=== PATIENT | male | born 1970 | race Native Hawaiian/Other Pacific Islander ===

== ENCOUNTER 2018-05-09 06:38 | Inpatient (IN) | payer OTHER ==
[2018-05-09] MEDS ORDERED: Iohexol 240 (50 ml) PO ONE (07:16)
[2018-05-09] MEDS ORDERED: Sodium Chloride 0.9% 1,000 ML IV ONE (07:16)
--- NOTE | 2018-05-09 07:17 | C.PDOC ---
History Of Present Illness 47 year old male with no known history presented with complaint of abdominal pain since yesterday. He was eating spicy cheesestake when started to have abdominal pain and vomiting. He vomited three times yesterday and did not vomit today but he continues to have abdominal pain. Pain is diffuse and He denies any diarrhea, fever or chills. Chief Complaint (Nursing): Abdominal Pain History Per: Patient History/Exam Limitations: no limitations Onset/Duration Of Symptoms: Days, Sudden Onset Current Symptoms Are (Timing): Still Present Context: Food Pain Scale Rating Of: 7 Location Of Pain/Discomfort: Diffuse Quality Of Discomfort: Sharp, "Pain" Associated Symptoms: Vomiting Exacerbating Factors: None Alleviating Factors: None Last Bowel Movement: Yesterday Recent travel outside of the [place]: No Past Medical History Vital Signs: Last Vital Signs Temp 99.4 F 05/09/18 10:25 Pulse 88 05/09/18 10:25 Resp 20 05/09/18 10:25 BP 145/74 05/09/18 10:25 Pulse Ox 96 05/09/18 10:25 - Medical History PMH: No Chronic Diseases Surgical History: No Surg Hx Family History: States: No Known Family Hx - Social History Hx Tobacco Use: Yes (1 pack per day/20 years) Hx Alcohol Use: Yes Hx Substance Use: No - Immunization History Hx Tetanus Toxoid Vaccination: No Hx Influenza Vaccination: No Hx Pneumococcal Vaccination: No Review Of Systems Except As Marked, All Systems Reviewed And Found Negative. Gastrointestinal: Positive for: Vomiting, Abdominal Pain Physical Exam - Physical Exam Appears: Well Skin: Normal Color Head: Atraumatic Eye(s): bilateral: Normal Inspection Ear(s): Bilateral: Normal Nose: Normal Oral Mucosa: Moist Tongue: Normal Appearing Lips: Normal Appearing Throat: Normal Neck: Normal Lymphatic: Deferred Chest: Symmetrical Cardiovascular: Rhythm Regular Respiratory: Normal Breath Sounds Gastrointestinal/Abdominal: Bowel Sounds, Soft, Tenderness Rectal: Deferred Back: Normal Inspection Extremity: Normal ROM Extremity: Bilateral: Atraumatic Neurological/Psych: Oriented x3, Normal Speech ED Course And Treatment - Laboratory Results Result Diagrams: 05/09/18 07:52 05/09/18 07:52 O2 Sat by Pulse Oximetry: 99 Medical Decision Making Medical Decision Makin47 year old M with no known history r/o obstruction r/o appendicitis r/o diverticulitis - labs -pepcid -IVF -ct abd/pelvis Pt was seen at bedside and states that the pain is feeling better. He's pending ct abd/pelvis 10:[address] Rico (patient's requesting him as surgeon) who will admit patient under his service. Case discussed with Dr. Lopez for medical consult. Disposition - Disposition Forms: [employer] (Romanian)
[2018-05-09 07:23] LABS: URINE BILIRUBIN NEGATIVE (NEGATIVE); URINE BLOOD NEGATIVE (NEGATIVE); URINE CLARITY Clear (Clear); URINE COLOR Yellow (YELLOW); URINE GLUCOSE (UA) NORMAL (Normal); URINE LEUKOCYTE ESTERASE NEG Leu/uL (Negative); URINE PROTEIN NEGATIVE (NEGATIVE); URINE UROBILINOGEN NORMAL mg/dL (0.2-1.0)
[2018-05-09] MEDS ORDERED: Sodium Chloride 0.9% 1,000 ML ONE (07:30)
[2018-05-09] MEDS ORDERED: Iohexol 240 (50 ml) ONE (07:30)
[2018-05-09 08:02] LABS: BASO # 0.1 K/uL (0.0-0.2); BASO % 0.2 % (0.0-2.0); EOS % 0.1 % (0.0-4.0); HEMOGLOBIN 15.4 g/dL (12.0-18.0); LYMPH # 2.1 K/uL (1.0-4.3); LYMPH % 7.5 % (20.0-40.0); MEAN CELL VOLUME 88.2 fL (80.0-94.0); MEAN CORPUSCULAR HEMOGLOBIN 30.4 pg (27.0-31.0); MEAN CORPUSCULAR HGB CONC 34.4 g/dL (33.0-37.0); MEAN PLATELET VOLUME 9.3 fL (7.2-11.7); MONO # 2.1 K/uL (0.0-0.8); MONO % 7.6 % (0.0-10.0); NEUT # 23.8 K/uL (1.8-7.0); NEUT % 84.6 % (50.0-75.0); PLATELET COUNT 226 K/uL (130-400); RBC 5.06 Mil/uL (4.40-5.90)
[2018-05-09 08:04] LABS: WHITE BLOOD COUNT 28.2 K/uL (4.8-10.8)
[2018-05-09 08:08] LABS: ALB/GLOB RATIO 1.6 (1.0-2.1); ALBUMIN 4.8 g/dL (3.5-5.0); ALT/SGPT 42 U/L (21-72); AST/SGOT 29 U/L (17-59); BLOOD UREA NITROGEN 9 mg/dL (9-20); CALCIUM 9.8 mg/dl (8.6-10.4); GFR AFRICAN-AMERICAN > 60; GFR NON-AFRICAN AMERICAN > 60; LIPASE 34 U/L (23-300)
[2018-05-09 08:23] LABS: BANDS 1 % (0-2); LYMPHOCYTE 9 % (20-40); MONOCYTE 9 % (0-10); NEUTROPHIL 81 % (50-75); PLATELET ESTIMATE NORMAL (NORMAL); TOTAL CELLS COUNTED 100
[2018-05-09] MEDS ORDERED: Iodixanol 320 MG/ML 100 ML BOTTLE IV ONE (09:36)
--- NOTE | 2018-05-09 10:36 | CT ---
PROCEDURE: CT Abdomen and Pelvis with contrast HISTORY: abd pain COMPARISON: None. TECHNIQUE: Contrast dose: 100 cc of Omnipaque Radiation dose: Total exam DLP = 326 mGy-cm. This CT exam was performed using one or more of the following dose reduction techniques: Automated exposure control, adjustment of the mA and/or kV according to patient size, and/or use of iterative reconstruction technique. FINDINGS: LOWER THORAX: Unremarkable. LIVER: Unremarkable. No gross lesion or ductal dilatation. GALLBLADDER AND BILE DUCTS: Unremarkable. PANCREAS: Unremarkable. No gross lesion or ductal dilatation. SPLEEN: Unremarkable. ADRENALS: Unremarkable. No mass. KIDNEYS AND URETERS: Unremarkable. No hydronephrosis. No solid mass. VASCULATURE: Unremarkable. No aortic aneurysm. BOWEL: Unremarkable. No obstruction. No gross mural thickening. APPENDIX: Diffuse thickening and abnormal enhancement of the appendix with an appendicolith present and periappendiceal fat infiltration consistent with acute appendicitis. PERITONEUM: Unremarkable. No free fluid. No free air. LYMPH NODES: Unremarkable. No enlarged lymph nodes. BLADDER: Unremarkable. REPRODUCTIVE: Unremarkable. BONES: No acute fracture. OTHER FINDINGS: None. IMPRESSION: Diffuse thickening and abnormal enhancement of the appendix with an appendicolith present and periappendiceal fat infiltration consistent with acute appendicitis. Emergency room physician notified.
[2018-05-09] MEDS: Sodium Chloride 0.9% 1,000 ML IV SCH ×3 (11:46→22:45)
[2018-05-09 12:07] LABS: INR 1.2; PROTHROMBIN TIME 13.3 SECONDS (9.7-12.2)
[2018-05-09] MEDS ORDERED: Piperacillin/Tazobact 3.375 gm 100 ML IVPB ONE (12:11)
[2018-05-09] MEDS: Piperacill/Tazo 3.375gm in Dex 3.375 GM/50 ML BAG IVPB SCH ×3 (12:20→23:50)
--- NOTE | 2018-05-09 14:29 | CP.PCM.CON ---
<Thiago Garrison - Last Filed: 05/09/18 14:30> History of Present Illness - History of Present Illness History of Present Illness: sURGERY CONSUYLT NOTE FOR DR BANDA 47M presents with abdominal pain that started yesterday. states he had two episodes of vomiting. He denies any fevers or chills. he has never had this pain before. He had no PMH. PMH: denies PSH: Hand surg Social: smokes tobacco, denies alcohgol Allergies: nkda Past Patient History - Past Social History Smoking Status: Heavy Smoker > 10 Cigarettes Daily - PSYCHIATRIC Hx Substance Use: No - SURGICAL HISTORY Hx Surgeries: No Meds Allergies/Adverse Reactions: Allergies Allergy/AdvReac Type Severity Reaction Status Date / Time No Known Allergies Allergy Unverified 05/09/18 06:56 - Medications Medications: Current Medications Sodium Chloride (Sodium Chloride 0.9%) 1,000 mls @ 100 mls/hr IV .Q10H [facility] Last Admin: 05/09/18 11:46 Dose: 100 mls/hr Piperacillin Sod/Tazobactam Sod (Zosyn 3.375 Gm Iv Premix) 3.375 gm in 50 mls @ 100 mls/hr IVPB Q6H [facility] PRN Reason: Protocol Last Admin: 05/09/18 12:20 Dose: 100 mls/hr Morphine Sulfate (Morphine) 2 mg IVP Q4 PRN PRN Reason: Pain, severe (8-10) Last Admin: 05/09/18 13:47 Dose: 2 mg Pantoprazole Sodium (Protonix Inj) 40 mg IVP DAILY [facility] Physical Exam - Constitutional Appears: Non-toxic, No Acute Distress - Eye Exam Eye Exam: EOMI, PERRL - ENT Exam ENT Exam: Mucous Membranes Moist - Respiratory Exam Respiratory Exam: Clear to Auscultation Bilateral, NORMAL BREATHING PATTERN - Cardiovascular Exam Cardiovascular Exam: REGULAR RHYTHM, +S1, +S2 - GI/Abdominal Exam GI & Abdominal Exam: Soft, Tenderness. absent: Distended, Firm, Guarding, Rebound, Rigid - Extremities Exam Extremities exam: Negative for: pedal edema, tenderness - Neurological Exam Neurological exam: Alert, Oriented x3 - Psychiatric Exam Psychiatric exam: Normal Affect, Normal Mood - Skin Skin Exam: Dry, Intact, Normal Color, Warm Results - Vital Signs Recent Vital Signs: Last Vital Signs Temp 98.8 F 05/09/18 13:00 Pulse 93 H 05/09/18 13:00 Resp 20 05/09/18 13:00 BP 128/75 05/09/18 13:00 Pulse Ox 98 05/09/18 13:00 - Labs Result Diagrams: 05/09/18 07:52 05/09/18 07:52 Labs: Laboratory Results - last 24 hr 05/09/18 05/09/18 05/09/18 07:11 07:52 07:52 WBC 28.2 H RBC 5.06 Hgb 15.4 Hct 44.7 MCV 88.2 MCH 30.4 MCHC 34.4 RDW 13.0 Plt Count 226 MPV 9.3 Neut % (Auto) 84.6 H Lymph % (Auto) 7.5 L [place] % (Auto) 7.6 Eos % (Auto) 0.1 Baso % (Auto) 0.2 Neut # (Auto) 23.8 H Lymph # (Auto) 2.1 [place] # (Auto) 2.1 H Eos # (Auto) 0.0 Baso # (Auto) 0.1 Neutrophils % (Manual) 81 H Band Neutrophils % 1 Lymphocytes % (Manual) 9 L Monocytes % (Manual) 9 Platelet Estimate Normal PT INR APTT Sodium 141 Potassium 4.4 Chloride 100 Carbon Dioxide 27 Anion Gap 18 BUN 9 Creatinine 0.7 L Est GFR ( Amer) > 60 Est GFR (Non-Af Amer) > 60 Random Glucose 119 H Lactic Acid Calcium 9.8 Total Bilirubin 1.0 AST 29 ALT 42 Alkaline Phosphatase 93 Total Protein 7.8 Albumin 4.8 Globulin 3.0 Albumin/Globulin Ratio 1.6 Lipase 34 Urine Color Yellow Urine Clarity Clear Urine pH 6.0 Ur Specific [place] 1.018 Urine Protein Negative Urine Glucose (UA) Normal Urine Ketones Trace Urine Blood Negative Urine Nitrate Negative Urine Bilirubin Negative Urine Urobilinogen Normal Ur Leukocyte Esterase Neg Urine WBC (Auto) 1 Urine RBC (Auto) 1 Blood Type Antibody Screen 05/09/18 05/09/18 05/09/18 07:52 11:55 11:55 WBC RBC Hgb Hct MCV MCH MCHC RDW Plt Count MPV Neut % (Auto) Lymph % (Auto) [place] % (Auto) Eos % (Auto) Baso % (Auto) Neut # (Auto) Lymph # (Auto) [place] # (Auto) Eos # (Auto) Baso # (Auto) Neutrophils % (Manual) Band Neutrophils % Lymphocytes % (Manual) Monocytes % (Manual) Platelet Estimate PT 13.3 H INR 1.2 APTT 35 H Sodium Potassium Chloride Carbon Dioxide Anion Gap BUN Creatinine Est GFR ( Amer) Est GFR (Non-Af Amer) Random Glucose Lactic Acid 2.2 H Calcium Total Bilirubin AST ALT Alkaline Phosphatase Total Protein Albumin Globulin Albumin/Globulin Ratio Lipase Urine Color Urine Clarity Urine pH Ur Specific [place] Urine Protein Urine Glucose (UA) Urine Ketones Urine Blood Urine Nitrate Urine Bilirubin Urine Urobilinogen Ur Leukocyte Esterase Urine WBC (Auto) Urine RBC (Auto) Blood Type O POSITIVE Antibody Screen Negative 05/09/18 13:53 WBC RBC Hgb Hct MCV MCH MCHC RDW Plt Count MPV Neut % (Auto) Lymph % (Auto) [place] % (Auto) Eos % (Auto) Baso % (Auto) Neut # (Auto) Lymph # (Auto) [place] # (Auto) Eos # (Auto) Baso # (Auto) Neutrophils % (Manual) Band Neutrophils % Lymphocytes % (Manual) Monocytes % (Manual) Platelet Estimate PT INR APTT Sodium Potassium Chloride Carbon Dioxide Anion Gap BUN Creatinine Est GFR ( Amer) Est GFR (Non-Af Amer) Random Glucose Lactic Acid 1.1 Calcium Total Bilirubin AST ALT Alkaline Phosphatase Total Protein Albumin Globulin Albumin/Globulin Ratio Lipase Urine Color Urine Clarity Urine pH Ur Specific [place] Urine Protein Urine Glucose (UA) Urine Ketones Urine Blood Urine Nitrate Urine Bilirubin Urine Urobilinogen Ur Leukocyte Esterase Urine WBC (Auto) Urine RBC (Auto) Blood Type Antibody Screen Assessment & Plan - Assessment and Plan (Free Text) Assessment: 47M with appendicitis Plan: - NPO, IVF Pain control antibiotics Plan for OR Further recs discuss with Dr. Veronika Garrison PGY2 <Dylno Banda - Last Filed: 05/13/18 00:25> Results - Vital Signs Recent Vital Signs: Last Vital Signs Temp 97.4 F L 05/11/18 15:41 Pulse 70 05/11/18 15:41 Resp 20 05/11/18 15:41 BP 164/92 H 05/11/18 15:41 Pulse Ox 98 05/11/18 15:41 - Labs Result Diagrams: 05/11/18 08:15 05/11/18 08:15 Attending/Attestation - Attestation I have personally seen and examined this patient.: Yes I have fully participated in the care of the patient.: Yes I have reviewed all pertinent clinical information: Yes Notes (Text): Pt was seen and examined at bedside Agree with above note and assessment Pt with RLQ abdominal pain and tenderness Labs and radiology reviewed Ass: Acute Appendicitis with Severe Leucocytosis Plan: OR for Lap Appendectomy possible Open Consent NPO, IVF IV antibiotics Plan d.w pt in detail Risk and benefit explained in detail.
--- NOTE | 2018-05-09 18:47 | CP.PCM.HP ---
<Thiago Garrison - Last Filed: 05/09/18 18:47> History of Present Illness - History of Present Illness History of Present Illness: SURGERY NOTE FOR VERONIKA 47M presents with abdominal pain that started yesterday. He states the pain stated in the lower abdominal and is now in the right lower quadrant. States he had two episodes of vomiting. He denies any fevers or chills. he has never had this pain before. States he has not been able to tolerate PO all day. PMH: denies PSH: Hand surg Social: smokes tobacco, denies alcohol Allergies: NKDA Present on Admission - Present on Admission Any Indicators Present on Admission: No Past Patient History - Past Medical History & Family History Past Medical History?: No - Past Social History Smoking Status: Light Smoker < 10 Cigarettes Daily - MUSCULOSKELETAL/RHEUMATOLOGICAL Hx Falls: No - PSYCHIATRIC Hx Substance Use: No - SURGICAL HISTORY Hx Surgeries: No Meds Allergies/Adverse Reactions: Allergies Allergy/AdvReac Type Severity Reaction Status Date / Time No Known Allergies Allergy Unverified 05/09/18 06:56 Physical Exam - Constitutional Appears: Non-toxic, No Acute Distress - Eye Exam Eye Exam: EOMI, PERRL - Respiratory Exam Respiratory Exam: Clear to Auscultation Bilateral, NORMAL BREATHING PATTERN - Cardiovascular Exam Cardiovascular Exam: REGULAR RHYTHM, +S1, +S2 - GI/Abdominal Exam GI & Abdominal Exam: Soft, Tenderness (lower abdomen). absent: Distended, Firm , Guarding, Rebound, Rigid - Extremities Exam Extremities exam: Negative for: pedal edema, tenderness - Neurological Exam Neurological exam: Alert, Oriented x3 - Psychiatric Exam Psychiatric exam: Normal Affect, Normal Mood - Skin Skin Exam: Dry, Intact, Normal Color, Warm Results - Vital Signs Recent Vital Signs: Last Vital Signs Temp 99.8 F H 05/09/18 15:45 Pulse 92 H 05/09/18 15:45 Resp 20 05/09/18 15:45 BP 116/71 05/09/18 15:45 Pulse Ox 96 05/09/18 15:45 - Labs Result Diagrams: 05/09/18 07:52 05/09/18 07:52 Labs: Laboratory Results - last 24 hr 05/09/18 05/09/18 05/09/18 07:11 07:52 07:52 WBC 28.2 H RBC 5.06 Hgb 15.4 Hct 44.7 MCV 88.2 MCH 30.4 MCHC 34.4 RDW 13.0 Plt Count 226 MPV 9.3 Neut % (Auto) 84.6 H Lymph % (Auto) 7.5 L [place] % (Auto) 7.6 Eos % (Auto) 0.1 Baso % (Auto) 0.2 Neut # (Auto) 23.8 H Lymph # (Auto) 2.1 [place] # (Auto) 2.1 H Eos # (Auto) 0.0 Baso # (Auto) 0.1 Neutrophils % (Manual) 81 H Band Neutrophils % 1 Lymphocytes % (Manual) 9 L Monocytes % (Manual) 9 Platelet Estimate Normal PT INR APTT Sodium 141 Potassium 4.4 Chloride 100 Carbon Dioxide 27 Anion Gap 18 BUN 9 Creatinine 0.7 L Est GFR ( Amer) > 60 Est GFR (Non-Af Amer) > 60 Random Glucose 119 H Lactic Acid Calcium 9.8 Total Bilirubin 1.0 AST 29 ALT 42 Alkaline Phosphatase 93 Total Protein 7.8 Albumin 4.8 Globulin 3.0 Albumin/Globulin Ratio 1.6 Lipase 34 Urine Color Yellow Urine Clarity Clear Urine pH 6.0 Ur Specific [place] 1.018 Urine Protein Negative Urine Glucose (UA) Normal Urine Ketones Trace Urine Blood Negative Urine Nitrate Negative Urine Bilirubin Negative Urine Urobilinogen Normal Ur Leukocyte Esterase Neg Urine WBC (Auto) 1 Urine RBC (Auto) 1 Blood Type Antibody Screen 05/09/18 05/09/18 05/09/18 07:52 11:55 11:55 WBC RBC Hgb Hct MCV MCH MCHC RDW Plt Count MPV Neut % (Auto) Lymph % (Auto) [place] % (Auto) Eos % (Auto) Baso % (Auto) Neut # (Auto) Lymph # (Auto) [place] # (Auto) Eos # (Auto) Baso # (Auto) Neutrophils % (Manual) Band Neutrophils % Lymphocytes % (Manual) Monocytes % (Manual) Platelet Estimate PT 13.3 H INR 1.2 APTT 35 H Sodium Potassium Chloride Carbon Dioxide Anion Gap BUN Creatinine Est GFR ( Amer) Est GFR (Non-Af Amer) Random Glucose Lactic Acid 2.2 H Calcium Total Bilirubin AST ALT Alkaline Phosphatase Total Protein Albumin Globulin Albumin/Globulin Ratio Lipase Urine Color Urine Clarity Urine pH Ur Specific [place] Urine Protein Urine Glucose (UA) Urine Ketones Urine Blood Urine Nitrate Urine Bilirubin Urine Urobilinogen Ur Leukocyte Esterase Urine WBC (Auto) Urine RBC (Auto) Blood Type O POSITIVE Antibody Screen Negative 05/09/18 13:53 WBC RBC Hgb Hct MCV MCH MCHC RDW Plt Count MPV Neut % (Auto) Lymph % (Auto) [place] % (Auto) Eos % (Auto) Baso % (Auto) Neut # (Auto) Lymph # (Auto) [place] # (Auto) Eos # (Auto) Baso # (Auto) Neutrophils % (Manual) Band Neutrophils % Lymphocytes % (Manual) Monocytes % (Manual) Platelet Estimate PT INR APTT Sodium Potassium Chloride Carbon Dioxide Anion Gap BUN Creatinine Est GFR ( Amer) Est GFR (Non-Af Amer) Random Glucose Lactic Acid 1.1 Calcium Total Bilirubin AST ALT Alkaline Phosphatase Total Protein Albumin Globulin Albumin/Globulin Ratio Lipase Urine Color Urine Clarity Urine pH Ur Specific [place] Urine Protein Urine Glucose (UA) Urine Ketones Urine Blood Urine Nitrate Urine Bilirubin Urine Urobilinogen Ur Leukocyte Esterase Urine WBC (Auto) Urine RBC (Auto) Blood Type Antibody Screen Assessment & Plan - Assessment and Plan (Free Text) Assessment: 47M with acute appendicitis Plan: NPO, IVF Pain control Antibiotics Plan for OR Further recs discuss with Dr. Veronika Garrison, PGY2 <Dylon Banda - Last Filed: 05/13/18 00:26> Results - Vital Signs Recent Vital Signs: Last Vital Signs Temp 97.4 F L 05/11/18 15:41 Pulse 70 05/11/18 15:41 Resp 20 05/11/18 15:41 BP 164/92 H 05/11/18 15:41 Pulse Ox 98 05/11/18 15:41 - Labs Result Diagrams: 05/11/18 08:15 05/11/18 08:15 Attending/Attestation - Attestation I have personally seen and examined this patient.: Yes I have fully participated in the care of the patient.: Yes I have reviewed all pertinent clinical information: Yes Notes (Text): Pt was seen and examined at bedside Agree with above note and assessment Pt with RLQ abdominal pain and tenderness Labs and radiology reviewed Ass: Acute Appendicitis with Severe Leucocytosis Plan: OR for Lap Appendectomy possible Open Consent NPO, IVF IV antibiotics Plan d.w pt in detail Risk and benefit explained in detail.
[2018-05-09] MEDS ORDERED: Propofol 10 mg/ml Inj (20 ML) ONE ×3 (20:01→20:27)
[2018-05-09] MEDS ORDERED: Succinylcholine Chloride 20 mg/ml Syr (5 ml) IV ONE (20:01)
[2018-05-09] MEDS ORDERED: Bupivacaine HCl 0.25% PF (30 ml) Inj ONE (20:13)
[2018-05-09] MEDS ORDERED: Lidocaine/Epinephrine 1% 1:100000 10 ML IJ ONE (20:14)
[2018-05-09] MEDS ORDERED: Rocuronium 10 mg/ml (5 ml) ONE (20:43)
[2018-05-09] MEDS ORDERED: Neostigmine Methylsulfate 3mg/3ml Syringe IV ONE (21:00)
[2018-05-09] MEDS ORDERED: Esmolol 100 mg/10ml Inj IV ONE (21:01)
--- NOTE | 2018-05-09 21:38 | CP.PCM.CON ---
History of Present Illness - History of Present Illness History of Present Illness: Chief complaint: Abdominal pain History of present illness: 47-year-old male with no past medical history came to the office with complaining of abdominal pain, sudden onset. Patient started noticing the pain yesterday in the afternoon, gradually got worse. Last night he was not able to sleep, the pain was localized over the lower abdominal region, such with the nausea. He was also having few episodes of vomiting. He denied any fever chills. This morning symptoms got worse. Family brought him to the emergency room. Patient in the past he has no past medical history, currently not taking any medication except multivitamins. Past medical history none Allergies no known drug allergies Past medical history patient currently smoking for many years, 1 pack per day. He denies any alcohol. But on and off he drinks his beer. Surgical history hand to hand surgery Family history: Father with liver cancer, and liver disease secondary to alcohol Brother also had a history of lung cancer Mother diabetes Review of system: Noted from the chart. Not in any distress now. Abdominal pain noted, improving now Denies any nausea now, had episodes of vomiting in the past. No GI or symptoms On examination: Vital signs are stable. Chest bilateral good air entry regular heart sounds nontender abdominal pedal edema DATA ANALYST alert awake oriented 3 no functional neurological deficit CAT scan of the abdomen showing evidence of thickening of the appendix, and the periappendiceal fat infiltration suggestive of acute appendicitis Labs WBC 28.2 Neutrophilia Lactate slightly elevated Chest x-ray was not done. EKG showing evidence of normal sinus rhythm 88 bpm Assessment and recommendation: 47-year-old male with history of smoking admitted to the hospital with acute abdomen. Acute appendicitis. Patient is scheduled to have the surgical intervention. Patient is medically stable for surgery. I advised him to quit smoking. CAT scan of the abdomen showing in the lower lung olguin a possibly and emphysematous changes. We will get x-ray of the chest tomorrow. We will follow the patient. Bronchodilators may be necessary, pain medication and will follow the patient Past Patient History - Past Medical History & Family History Past Medical History?: No - Past Social History Smoking Status: Light Smoker < 10 Cigarettes Daily - MUSCULOSKELETAL/RHEUMATOLOGICAL Hx Falls: No - PSYCHIATRIC Hx Substance Use: No - SURGICAL HISTORY Hx Surgeries: No Meds Allergies/Adverse Reactions: Allergies Allergy/AdvReac Type Severity Reaction Status Date / Time No Known Allergies Allergy Unverified 05/09/18 06:56 - Medications Medications: Current Medications Sodium Chloride (Sodium Chloride 0.9%) 1,000 mls @ 100 mls/hr IV .Q10H [facility] Last Admin: 05/09/18 19:08 Dose: 100 mls/hr Piperacillin Sod/Tazobactam Sod (Zosyn 3.375 Gm Iv Premix) 3.375 gm in 50 mls @ 100 mls/hr IVPB Q6H [facility] PRN Reason: Protocol Last Admin: 05/09/18 19:05 Dose: 100 mls/hr Morphine Sulfate (Morphine) 2 mg IVP Q4 PRN PRN Reason: Pain, severe (8-10) Last Admin: 05/09/18 13:47 Dose: 2 mg Pantoprazole Sodium (Protonix Inj) 40 mg IVP DAILY [facility] Results - Vital Signs Recent Vital Signs: Last Vital Signs Temp 99.8 F H 05/09/18 15:45 Pulse 92 H 05/09/18 15:45 Resp 20 05/09/18 15:45 BP 116/71 05/09/18 15:45 Pulse Ox 96 05/09/18 15:45 - Labs Result Diagrams: 05/09/18 07:52 05/09/18 07:52 Labs: Laboratory Results - last 24 hr 05/09/18 05/09/18 05/09/18 07:11 07:52 07:52 WBC 28.2 H RBC 5.06 Hgb 15.4 Hct 44.7 MCV 88.2 MCH 30.4 MCHC 34.4 RDW 13.0 Plt Count 226 MPV 9.3 Neut % (Auto) 84.6 H Lymph % (Auto) 7.5 L [place] % (Auto) 7.6 Eos % (Auto) 0.1 Baso % (Auto) 0.2 Neut # (Auto) 23.8 H Lymph # (Auto) 2.1 [place] # (Auto) 2.1 H Eos # (Auto) 0.0 Baso # (Auto) 0.1 Neutrophils % (Manual) 81 H Band Neutrophils % 1 Lymphocytes % (Manual) 9 L Monocytes % (Manual) 9 Platelet Estimate Normal PT INR APTT Sodium 141 Potassium 4.4 Chloride 100 Carbon Dioxide 27 Anion Gap 18 BUN 9 Creatinine 0.7 L Est GFR ( Amer) > 60 Est GFR (Non-Af Amer) > 60 Random Glucose 119 H Lactic Acid Calcium 9.8 Total Bilirubin 1.0 AST 29 ALT 42 Alkaline Phosphatase 93 Total Protein 7.8 Albumin 4.8 Globulin 3.0 Albumin/Globulin Ratio 1.6 Lipase 34 Urine Color Yellow Urine Clarity Clear Urine pH 6.0 Ur Specific [place] 1.018 Urine Protein Negative Urine Glucose (UA) Normal Urine Ketones Trace Urine Blood Negative Urine Nitrate Negative Urine Bilirubin Negative Urine Urobilinogen Normal Ur Leukocyte Esterase Neg Urine WBC (Auto) 1 Urine RBC (Auto) 1 Blood Type Antibody Screen 05/09/18 05/09/18 05/09/18 07:52 11:55 11:55 WBC RBC Hgb Hct MCV MCH MCHC RDW Plt Count MPV Neut % (Auto) Lymph % (Auto) [place] % (Auto) Eos % (Auto) Baso % (Auto) Neut # (Auto) Lymph # (Auto) [place] # (Auto) Eos # (Auto) Baso # (Auto) Neutrophils % (Manual) Band Neutrophils % Lymphocytes % (Manual) Monocytes % (Manual) Platelet Estimate PT 13.3 H INR 1.2 APTT 35 H Sodium Potassium Chloride Carbon Dioxide Anion Gap BUN Creatinine Est GFR ( Amer) Est GFR (Non-Af Amer) Random Glucose Lactic Acid 2.2 H Calcium Total Bilirubin AST ALT Alkaline Phosphatase Total Protein Albumin Globulin Albumin/Globulin Ratio Lipase Urine Color Urine Clarity Urine pH Ur Specific [place] Urine Protein Urine Glucose (UA) Urine Ketones Urine Blood Urine Nitrate Urine Bilirubin Urine Urobilinogen Ur Leukocyte Esterase Urine WBC (Auto) Urine RBC (Auto) Blood Type O POSITIVE Antibody Screen Negative 05/09/18 13:53 WBC RBC Hgb Hct MCV MCH MCHC RDW Plt Count MPV Neut % (Auto) Lymph % (Auto) [place] % (Auto) Eos % (Auto) Baso % (Auto) Neut # (Auto) Lymph # (Auto) [place] # (Auto) Eos # (Auto) Baso # (Auto) Neutrophils % (Manual) Band Neutrophils % Lymphocytes % (Manual) Monocytes % (Manual) Platelet Estimate PT INR APTT Sodium Potassium Chloride Carbon Dioxide Anion Gap BUN Creatinine Est GFR ( Amer) Est GFR (Non-Af Amer) Random Glucose Lactic Acid 1.1 Calcium Total Bilirubin AST ALT Alkaline Phosphatase Total Protein Albumin Globulin Albumin/Globulin Ratio Lipase Urine Color Urine Clarity Urine pH Ur Specific [place] Urine Protein Urine Glucose (UA) Urine Ketones Urine Blood Urine Nitrate Urine Bilirubin Urine Urobilinogen Ur Leukocyte Esterase Urine WBC (Auto) Urine RBC (Auto) Blood Type Antibody Screen
[2018-05-09] MEDS ORDERED: HYDROmorphone 0.5 mg/0.5 ml ISec IVP PRN (22:14)
--- NOTE | 2018-05-09 22:20 | PCM.SURG1 ---
Surgeon's Initial Post Op Note - Surgeon's Notes Surgeon: MD Veronika Medical Field Representative: SPENSER GarrisonY2 Pre-Operative Diagnosis: Acute appendicitis Operative Findings: inflammed appendix Post-Operative Diagnosis: Acute appendicitis Operation Performed: laparoscopis appendectomy, lysis of adhesions Specimen/Specimens Removed: appendix Estimated Blood Loss: EBL {In ML}: 10 Date of Surgery/Procedure: 05/09/18 Time of Surgery/Procedure: 20:15
[2018-05-10] MEDS: Piperacill/Tazo 3.375gm in Dex 3.375 GM/50 ML BAG IVPB SCH ×4 (06:11→22:15)
[2018-05-10] MEDS: HYDROmorphone 0.5 mg/0.5 ml ISec IVP PRN ×2 (06:24)
[2018-05-10] MEDS: Sodium Chloride 0.9% 1,000 ML IV SCH (07:47)
[2018-05-10] MEDS ORDERED: HYDROmorphone 1 mg/ml ISec IVP PRN (09:14)
[2018-05-10 11:15] LABS: BASO % 0.1 % (0.0-2.0); LYMPH # 0.8 K/uL (1.0-4.3); LYMPH % 4.3 % (20.0-40.0); MEAN CELL VOLUME 89.6 fL (80.0-94.0); MEAN CORPUSCULAR HEMOGLOBIN 30.9 pg (27.0-31.0); MEAN CORPUSCULAR HGB CONC 34.5 g/dL (33.0-37.0); MEAN PLATELET VOLUME 8.6 fL (7.2-11.7); MONO # 0.9 K/uL (0.0-0.8); MONO % 4.8 % (0.0-10.0); NEUT # 17.8 K/uL (1.8-7.0); NEUT % 90.8 % (50.0-75.0); PLATELET COUNT 198 K/uL (130-400); RBC 4.28 Mil/uL (4.40-5.90); RED CELL DISTRIBUTION WIDTH 13.5 % (11.5-14.5); WHITE BLOOD COUNT 19.6 K/uL (4.8-10.8)
[2018-05-10 11:26] LABS: HEMOGLOBIN 13.2 g/dL (12.0-18.0)
[2018-05-10 11:33] LABS: ALB/GLOB RATIO 1.6 (1.0-2.1); ALBUMIN 4.2 g/dL (3.5-5.0); ALT/SGPT 61 U/L (21-72); AST/SGOT 50 U/L (17-59); BLOOD UREA NITROGEN 18 mg/dL (9-20); CALCIUM 8.8 mg/dl (8.6-10.4); GFR AFRICAN-AMERICAN > 60; GFR NON-AFRICAN AMERICAN > 60
[2018-05-10 11:47] LABS: LYMPHOCYTE 7 % (20-40); MONOCYTE 2 % (0-10); NEUTROPHIL 91 % (50-75); PLATELET ESTIMATE NORMAL (NORMAL); TOTAL CELLS COUNTED 100
[2018-05-10 16:53] VITALS: RESP 20
--- NOTE | 2018-05-10 17:47 | CARD ---
APPROVED REPORT EKG Measurement Heart [id number] <Conclusion> Normal sinus rhythm Normal ECG
--- NOTE | 2018-05-10 20:54 | CP.PCM.PN ---
<JavierRosario - Last Filed: 05/10/18 20:51> Subjective - Date & Time of Evaluation Date of Evaluation: 05/10/18 Time of Evaluation: 20:51 - Subjective Subjective: Surgery Pt seen and examined. Pt underwent surgery yesterday and tolerated it well. Tolerating diet. Had urinary retention overnight. Urology consulted . Placed on Flomax. Voided. Pain controlled. Ambulating. Objective - Vital Signs/Intake and Output Vital Signs (last 24 hours): Temp Pulse Resp BP Pulse Ox 98.1 F 84 20 108/65 96 05/10/18 15:55 05/10/18 15:55 05/10/18 15:55 05/10/18 15:55 05/10/18 15:55 Intake and Output: 05/10/18 05/11/18 18:59 06:59 Intake Total 600 Output Total 1330 Balance -730 - Medications Medications: Current Medications Hydromorphone HCl (Dilaudid) 1 mg IVP Q6 PRN PRN Reason: Pain, severe (8-10) Piperacillin Sod/Tazobactam Sod (Zosyn 3.375 Gm Iv Premix) 3.375 gm in 50 mls @ 100 mls/hr IVPB Q6H [facility] PRN Reason: Protocol Last Admin: 05/10/18 17:15 Dose: 100 mls/hr Ketorolac Tromethamine (Toradol) 30 mg IVP Q6 PRN PRN Reason: Pain, moderate (4-7) Last Admin: 05/10/18 17:16 Dose: 30 mg Pantoprazole Sodium (Protonix Inj) 40 mg IVP DAILY [facility] Last Admin: 05/10/18 09:48 Dose: 40 mg Tamsulosin HCl (Flomax) 0.4 mg PO BID [facility] Last Admin: 05/10/18 17:15 Dose: 0.4 mg - Labs Labs: 05/10/18 11:05 05/10/18 11:05 PT 13.3 SECONDS (9.7-12.2) H 05/09/18 11:55 INR 1.2 05/09/18 11:55 APTT 35 SECONDS (21-34) H 05/09/18 11:55 - Constitutional Appears: No Acute Distress - Head Exam Head Exam: ATRAUMATIC, NORMAL INSPECTION, NORMOCEPHALIC - Eye Exam Eye Exam: EOMI, Normal appearance, PERRL Pupil Exam: NORMAL ACCOMODATION, PERRL - ENT Exam ENT Exam: Mucous Membranes Moist, Normal Exam - Neck Exam Neck Exam: Full ROM, Normal Inspection. absent: Lymphadenopathy - Respiratory Exam Respiratory Exam: Clear to Ausculation Bilateral, NORMAL BREATHING PATTERN - Cardiovascular Exam Cardiovascular Exam: REGULAR RHYTHM, +S1, +S2. absent: Murmur - GI/Abdominal Exam GI & Abdominal Exam: Soft, Tenderness, Normal Bowel Sounds. absent: Distended, Firm, Guarding, Rigid, Hernia, Mass Additional comments: Incision C/D/I , Drain in place 50cc SS. - Exam Exam: NORMAL INSPECTION - Extremities Exam Extremities Exam: Full ROM, Normal Capillary Refill, Normal Inspection. absent : Joint Swelling, Pedal Edema - Back Exam Back Exam: NORMAL INSPECTION - Neurological Exam Neurological Exam: Alert, Awake, CN II-XII Intact, Normal Gait, Oriented x3 - Psychiatric Exam Psychiatric exam: Normal Affect, Normal Mood - Skin Skin Exam: Dry, Intact, Normal Color, Warm Assessment and Plan - Assessment and Plan (Free Text) Assessment: POD 1 s/p laparoscopic appendectomy YANELIS -f/u CBC -MOnitor VS -Regular diet -AMbulate -Flomax BID -Urology consult appreciated -Zosyn -DVT/GI ppx Will DW Dr. Banda <Dylon Banda B - Last Filed: 05/13/18 00:34> Objective - Vital Signs/Intake and Output Vital Signs (last 24 hours): Temp Pulse Resp BP Pulse Ox 97.4 F L 70 20 164/92 H 98 05/11/18 15:41 05/11/18 15:41 05/11/18 15:41 05/11/18 15:41 05/11/18 15:41 - Labs Labs: 05/11/18 08:15 05/11/18 08:15 PT 13.3 SECONDS (9.7-12.2) H 05/09/18 11:55 INR 1.2 05/09/18 11:55 APTT 35 SECONDS (21-34) H 05/09/18 11:55 Attending/Attestation - Attestation I have personally seen and examined this patient.: Yes I have fully participated in the care of the patient.: Yes I have reviewed all pertinent clinical information, including history, physical exam and plan: Yes Notes (Text): Pt was seen and examined at bedside Agree with above note and assessment Pt is improving clinically Had Urinary retention today Now pt is on Flomax IV antibiotics Repeat CBC in am Plan d.w pt in detail Risk and benefit explained in detail.
--- NOTE | 2018-05-10 23:09 | CP.PCM.CON ---
Past Patient History - Past Medical History & Family History Past Medical History?: No - Past Social History Smoking Status: Light Smoker < 10 Cigarettes Daily - MUSCULOSKELETAL/RHEUMATOLOGICAL Hx Falls: No - PSYCHIATRIC Hx Substance Use: No - SURGICAL HISTORY Hx Surgeries: No Meds Allergies/Adverse Reactions: Allergies Allergy/AdvReac Type Severity Reaction Status Date / Time No Known Allergies Allergy Unverified 05/09/18 06:56 - Medications Medications: Current Medications Hydromorphone HCl (Dilaudid) 1 mg IVP Q6 PRN PRN Reason: Pain, severe (8-10) Piperacillin Sod/Tazobactam Sod (Zosyn 3.375 Gm Iv Premix) 3.375 gm in 50 mls @ 100 mls/hr IVPB Q6H [facility] PRN Reason: Protocol Last Admin: 05/10/18 22:15 Dose: 100 mls/hr Ketorolac Tromethamine (Toradol) 30 mg IVP Q6 PRN PRN Reason: Pain, moderate (4-7) Last Admin: 05/10/18 17:16 Dose: 30 mg Pantoprazole Sodium (Protonix Inj) 40 mg IVP DAILY [facility] Last Admin: 05/10/18 09:48 Dose: 40 mg Tamsulosin HCl (Flomax) 0.4 mg PO BID [facility] Last Admin: 05/10/18 17:15 Dose: 0.4 mg Results - Vital Signs Recent Vital Signs: Last Vital Signs Temp 98.1 F 05/10/18 15:55 Pulse 84 05/10/18 15:55 Resp 20 05/10/18 15:55 BP 108/65 05/10/18 15:55 Pulse Ox 96 05/10/18 15:55 - Labs Result Diagrams: 05/10/18 11:05 05/10/18 11:05 Labs: Laboratory Results - last 24 hr 05/10/18 05/10/18 11:05 11:05 WBC 19.6 H RBC 4.28 L Hgb 13.2 D Hct 38.4 MCV 89.6 MCH 30.9 MCHC 34.5 RDW 13.5 Plt Count 198 MPV 8.6 Neut % (Auto) 90.8 H Lymph % (Auto) 4.3 L [place] % (Auto) 4.8 Eos % (Auto) 0.0 Baso % (Auto) 0.1 Neut # (Auto) 17.8 H Lymph # (Auto) 0.8 L [place] # (Auto) 0.9 H Eos # (Auto) 0.0 Baso # (Auto) 0.0 Neutrophils % (Manual) 91 H Lymphocytes % (Manual) 7 L Monocytes % (Manual) 2 Platelet Estimate Normal Sodium 144 Potassium 4.0 Chloride 104 Carbon Dioxide 24 Anion Gap 21 H BUN 18 Creatinine 1.1 Est GFR ( Amer) > 60 Est GFR (Non-Af Amer) > 60 Random Glucose 133 H Calcium 8.8 Total Bilirubin 0.9 AST 50 ALT 61 Alkaline Phosphatase 80 Total Protein 6.8 Albumin 4.2 Globulin 2.6 Albumin/Globulin Ratio 1.6 Assessment & Plan - Assessment and Plan (Free Text) Assessment: IMP: Urinary retention, now improved Inability to have catheter passed s/p appendectomy full note tbd YS - Date & Time Date: 05/10/18 Time: 12:45
[2018-05-11] MEDS: Piperacill/Tazo 3.375gm in Dex 3.375 GM/50 ML BAG IVPB SCH ×3 (05:49→17:21)
[2018-05-11 08:46] LABS: BASO % 0.3 % (0.0-2.0); EOS % 0.1 % (0.0-4.0); HEMOGLOBIN 12.8 g/dL (12.0-18.0); LYMPH # 2.4 K/uL (1.0-4.3); LYMPH % 16.9 % (20.0-40.0); MEAN CELL VOLUME 89.7 fL (80.0-94.0); MEAN CORPUSCULAR HEMOGLOBIN 30.8 pg (27.0-31.0); MEAN CORPUSCULAR HGB CONC 34.4 g/dL (33.0-37.0); MEAN PLATELET VOLUME 8.8 fL (7.2-11.7); MONO # 0.6 K/uL (0.0-0.8); MONO % 4.3 % (0.0-10.0); NEUT % 78.4 % (50.0-75.0); RBC 4.14 Mil/uL (4.40-5.90); RED CELL DISTRIBUTION WIDTH 13.5 % (11.5-14.5)
[2018-05-11 09:10] LABS: ALB/GLOB RATIO 1.3 (1.0-2.1); ALBUMIN 3.7 g/dL (3.5-5.0); ALT/SGPT 52 U/L (21-72); AST/SGOT 36 U/L (17-59); BLOOD UREA NITROGEN 17 mg/dL (9-20); CALCIUM 8.8 mg/dl (8.6-10.4); GFR AFRICAN-AMERICAN > 60; GFR NON-AFRICAN AMERICAN > 60
[2018-05-11 15:41] VITALS: BP 164/92; PULSE 70; TEMP 97.4; O2SAT 98
--- NOTE | 2018-05-11 18:13 | CP.PCM.PN ---
Subjective - Date & Time of Evaluation Date of Evaluation: 05/10/18 Time of Evaluation: 18:12 - Subjective Subjective: Patient this morning had an episode of urinary retention. He underwent appendectomy last night. Tolerated the procedure well. Complaining of some lower back pain. But he is feeling good now. Able to ambulate, and he was also making urine On examination: Vital signs stable. Chest good air entry regular heart sounds nontender abdomen. Drainage noted Assessment and recommendation: 47-year-old male admitted with acute appendicitis. Urinary retention. With the Flomax patient is able to pass urine. We will continue the current treatment. IV fluid antibiotic. And also patient admitted with acute sepsis, secondary to acute appendicitis Objective - Vital Signs/Intake and Output Vital Signs (last 24 hours): Temp Pulse Resp BP Pulse Ox 97.4 F L 70 20 164/92 H 98 05/11/18 15:41 05/11/18 15:41 05/11/18 15:41 05/11/18 15:41 05/11/18 15:41 Intake and Output: 05/11/18 05/11/18 06:59 18:59 Intake Total 1100 530 Output Total 420 820 Balance 680 -290 - Medications Medications: Current Medications Hydromorphone HCl (Dilaudid) 1 mg IVP Q6 PRN PRN Reason: Pain, severe (8-10) Piperacillin Sod/Tazobactam Sod (Zosyn 3.375 Gm Iv Premix) 3.375 gm in 50 mls @ 100 mls/hr IVPB Q6H [facility] PRN Reason: Protocol Last Admin: 05/11/18 17:21 Dose: 100 mls/hr Ketorolac Tromethamine (Toradol) 30 mg IVP Q6 PRN PRN Reason: Pain, moderate (4-7) Last Admin: 05/10/18 17:16 Dose: 30 mg Pantoprazole Sodium (Protonix Inj) 40 mg IVP DAILY [facility] Last Admin: 05/11/18 10:37 Dose: 40 mg Tamsulosin HCl (Flomax) 0.4 mg PO BID [facility] Last Admin: 05/11/18 17:21 Dose: 0.4 mg - Labs Labs: 05/11/18 08:15 05/11/18 08:15 PT 13.3 SECONDS (9.7-12.2) H 05/09/18 11:55 INR 1.2 05/09/18 11:55 APTT 35 SECONDS (21-34) H 05/09/18 11:55
--- NOTE | 2018-05-11 18:14 | CP.PCM.PN ---
Subjective - Date & Time of Evaluation Date of Evaluation: 05/11/18 Time of Evaluation: 18:14 - Subjective Subjective: Patient this morning had an episode of urinary retention. He underwent appendectomy last night. Tolerated the procedure well. Currently feeling better. Tolerating the feeding On examination: Vital signs stable. Chest good air entry regular heart sounds nontender abdomen. Drainage noted Assessment and recommendation: 47-year-old male admitted with acute appendicitis. Urinary retention. With the Flomax patient is able to pass urine. We will continue the current treatment. IV fluid antibiotic. And also patient admitted with acute sepsis, secondary to acute appendicitis Objective - Vital Signs/Intake and Output Vital Signs (last 24 hours): Temp Pulse Resp BP Pulse Ox 97.4 F L 70 20 164/92 H 98 05/11/18 15:41 05/11/18 15:41 05/11/18 15:41 05/11/18 15:41 05/11/18 15:41 Intake and Output: 05/11/18 05/11/18 06:59 18:59 Intake Total 1100 530 Output Total 420 820 Balance 680 -290 - Medications Medications: Current Medications Hydromorphone HCl (Dilaudid) 1 mg IVP Q6 PRN PRN Reason: Pain, severe (8-10) Piperacillin Sod/Tazobactam Sod (Zosyn 3.375 Gm Iv Premix) 3.375 gm in 50 mls @ 100 mls/hr IVPB Q6H [facility] PRN Reason: Protocol Last Admin: 05/11/18 17:21 Dose: 100 mls/hr Ketorolac Tromethamine (Toradol) 30 mg IVP Q6 PRN PRN Reason: Pain, moderate (4-7) Last Admin: 05/10/18 17:16 Dose: 30 mg Pantoprazole Sodium (Protonix Inj) 40 mg IVP DAILY [facility] Last Admin: 05/11/18 10:37 Dose: 40 mg Tamsulosin HCl (Flomax) 0.4 mg PO BID [facility] Last Admin: 05/11/18 17:21 Dose: 0.4 mg - Labs Labs: 05/11/18 08:15 05/11/18 08:15 PT 13.3 SECONDS (9.7-12.2) H 05/09/18 11:55 INR 1.2 05/09/18 11:55 APTT 35 SECONDS (21-34) H 05/09/18 11:55
--- NOTE | 2018-05-11 18:54 | CP.PCM.DIS ---
Provider - Provider Date of Admission: 05/09/18 11:54 Attending physician: Dylon Banda MD Time Spent in preparation of Discharge (in minutes): 30 Hospital Course - Lab Results Lab Results: Most Recent Lab Values WBC 14.0 K/uL (4.8-10.8) H 05/11/18 08:15 RBC 4.14 Mil/uL (4.40-5.90) L 05/11/18 08:15 Hgb 12.8 g/dL (12.0-18.0) 05/11/18 08:15 Hct 37.1 % (35.0-51.0) 05/11/18 08:15 MCV 89.7 fL (80.0-94.0) 05/11/18 08:15 MCH 30.8 pg (27.0-31.0) 05/11/18 08:15 MCHC 34.4 g/dL (33.0-37.0) 05/11/18 08:15 RDW 13.5 % (11.5-14.5) 05/11/18 08:15 Plt Count 200 K/uL (130-400) 05/11/18 08:15 MPV 8.8 fL (7.2-11.7) 05/11/18 08:15 Neut % (Auto) 78.4 % (50.0-75.0) H 05/11/18 08:15 Lymph % (Auto) 16.9 % (20.0-40.0) L 05/11/18 08:15 Door % (Auto) 4.3 % (0.0-10.0) 05/11/18 08:15 Eos % (Auto) 0.1 % (0.0-4.0) 05/11/18 08:15 Baso % (Auto) 0.3 % (0.0-2.0) 05/11/18 08:15 Neut # (Auto) 11.0 K/uL (1.8-7.0) H 05/11/18 08:15 Lymph # (Auto) 2.4 K/uL (1.0-4.3) 05/11/18 08:15 Door # (Auto) 0.6 K/uL (0.0-0.8) 05/11/18 08:15 Eos # (Auto) 0.0 K/uL (0.0-0.7) 05/11/18 08:15 Baso # (Auto) 0.0 K/uL (0.0-0.2) 05/11/18 08:15 Neutrophils % (Manual) 91 % (50-75) H 05/10/18 11:05 Band Neutrophils % 1 % (0-2) 05/09/18 07:52 Lymphocytes % (Manual) 7 % (20-40) L 05/10/18 11:05 Monocytes % (Manual) 2 % (0-10) 05/10/18 11:05 Platelet Estimate Normal (NORMAL) 05/10/18 11:05 PT 13.3 SECONDS (9.7-12.2) H 05/09/18 11:55 INR 1.2 05/09/18 11:55 APTT 35 SECONDS (21-34) H 05/09/18 11:55 Sodium 143 mmol/L (132-148) 05/11/18 08:15 Potassium 3.6 mmol/L (3.6-5.2) 05/11/18 08:15 Chloride 105 mmol/L (98-107) 05/11/18 08:15 Carbon Dioxide 27 mmol/L (22-30) 05/11/18 08:15 Anion Gap 14 (10-20) 05/11/18 08:15 BUN 17 mg/dL (9-20) 05/11/18 08:15 Creatinine 1.0 mg/dL (0.8-1.5) 05/11/18 08:15 Est GFR ( Amer) > 60 05/11/18 08:15 Est GFR (Non-Af Amer) > 60 05/11/18 08:15 Random Glucose 160 mg/dL (75-110) H 05/11/18 08:15 Lactic Acid 1.1 mmol/L (0.7-2.1) 05/09/18 13:53 Calcium 8.8 mg/dl (8.6-10.4) 05/11/18 08:15 Total Bilirubin 0.8 mg/dL (0.2-1.3) 05/11/18 08:15 AST 36 U/L (17-59) 05/11/18 08:15 ALT 52 U/L (21-72) 05/11/18 08:15 Alkaline Phosphatase 70 U/L (38-126) 05/11/18 08:15 Total Protein 6.5 g/dL (6.3-8.3) 05/11/18 08:15 Albumin 3.7 g/dL (3.5-5.0) 05/11/18 08:15 Globulin 2.8 gm/dL (2.2-3.9) 05/11/18 08:15 Albumin/Globulin Ratio 1.3 (1.0-2.1) 05/11/18 08:15 Lipase 34 U/L (23-300) 05/09/18 07:52 Urine Color Yellow (YELLOW) 05/09/18 07:11 Urine Clarity Clear (Clear) 05/09/18 07:11 Urine pH 6.0 (5.0-8.0) 05/09/18 07:11 Ur Specific [place] 1.018 (1.003-1.030) 05/09/18 07:11 Urine Protein Negative mg/dL (NEGATIVE) 05/09/18 07:11 Urine Glucose (UA) Normal mg/dL (Normal) 05/09/18 07:11 Urine Ketones Trace mg/dL (NEGATIVE) 05/09/18 07:11 Urine Blood Negative (NEGATIVE) 05/09/18 07:11 Urine Nitrate Negative (NEGATIVE) 05/09/18 07:11 Urine Bilirubin Negative (NEGATIVE) 05/09/18 07:11 Urine Urobilinogen Normal mg/dL (0.2-1.0) 05/09/18 07:11 Ur Leukocyte Esterase Neg [place]/uL (Negative) 05/09/18 07:11 Urine WBC (Auto) 1 /hpf (0-5) 05/09/18 07:11 Urine RBC (Auto) 1 /hpf (0-3) 05/09/18 07:11 Blood Type O POSITIVE 05/09/18 11:55 Antibody Screen Negative 05/09/18 11:55 - Hospital Course Hospital Course: 47M presented with acute appendicitis 05/09 and was taken to OR same day for lap appendectomy with martin drain placement. Patient POD1 suffered from urinary retention which resolved by itself eventually and has been having adequate urine output. Patient tolerating regular diet. Drain removed POD 2 DC POD2 Discharge Exam - Head Exam Head Exam: ATRAUMATIC, NORMAL INSPECTION, NORMOCEPHALIC - Eye Exam Eye Exam: EOMI, PERRL - Respiratory Exam Respiratory Exam: Clear to PA & Lateral, NORMAL BREATHING PATTERN - Cardiovascular Exam Cardiovascular Exam: REGULAR RHYTHM, +S1, +S2 - GI/Abdominal Exam GI & Abdominal Exam: Soft. absent: Distended, Firm, Guarding, Rebound, Rigid, Tenderness Additional comments: dressing CDI - Neurological Exam Neurological exam: Alert, Oriented x3 - Psychiatric Exam Psychiatric exam: Normal Affect, Normal Mood - Skin Skin Exam: Dry, Intact, Normal Color, Warm Discharge Plan - Discharge Medications Prescriptions: Levofloxacin [Levaquin] 500 mg PO DAILY #7 tablet oxyCODONE/Acetaminophen [Percocet 5/325 mg Tab] 1 ea PO Q6 PRN #12 tab PRN Reason: Pain, Severe (8-10) - Follow Up Plan Condition: GOOD Disposition: HOME/ ROUTINE Instructions: Appendectomy, Laparoscopic Surgery Additional Instructions: 1) Remove top dressing in 05/13/18 2) The steri-strips underneath will fall off on their own. 3) Please take medications as directed. 4) Can shower but do not bath 5) Please return to emergency room for emergencies. Referrals: Dylon Banda MD [Staff Provider] -
--- NOTE | 2018-05-13 06:52 | OP ---
PROCEDURE DATE: 05/09/2018 PREOPERATIVE DIAGNOSES: 1. Acute appendicitis. 2. Severe leukocytosis. 3. Appendicolith at the base of the appendix. POSTOPERATIVE DIAGNOSES: 1. Acute appendicitis. 2. Severe leukocytosis. 3. Appendicolith at the base of the appendix. 4. Pelvic abscess. PROCEDURES DONE: 1. Laparoscopic appendectomy. 2. Laparoscopic drainage of pelvic abscess. 3. Laparoscopic partial cecectomy. 4. Laparoscopic extensive lysis of adhesion. SURGEON: Dylon Banda MD. FURNACE CHARGER: Thiago Garrison DO. TYPE OF ANESTHESIA: General endotracheal tube anesthesia. ESTIMATED BLOOD LOSS: Around 20 mL. PATHOLOGY: 1. Appendix. 2. Part of the cecum. COMPLICATIONS: None. DRAINS: A 19-Greenlandic Mihir drain was placed. INTRAOPERATIVE FINDINGS: The patient had gangrenous phlegmonous appendicitis with necrosis of the base of the appendix and cecum junction and the patient also had a pelvic abscess and extensive postinfectious adhesion. DESCRIPTION OF PROCEDURE: On intraoperative steps, this is a 47-year-old male who was diagnosed with acute appendicitis and severe leukocytosis and the patient also had appendicolith at the base of the appendix and the patient was consented for the laparoscopic appendectomy, possible open. Brought to the OR, placed supine on the operating table. After induction of anesthesia, the abdomen was prepped and draped in the usual sterile fashion. A supraumbilical transverse incision was made after incising skin, subcutaneous tissue and the fascia. The robotic camera port was placed. Pneumo was created. The Villanueva port was placed in the umbilical region and another two ports were placed, one in suprapubic and left lower quadrant. After that, grasper and dissector were introduced and the patient found to have large phlegmon and extensive lysis of adhesion done on the phlegmon, enterolysis was done. The appendix was identified. Appendix appeared adhered to the lateral abdominal and lysis of adhesion was done and appendix appeared to be necrosed and there was a pelvic abscess periappendicular collection that was drained and the mesoappendix was dissected with a harmonic scalpel. Base of the appendix was resected with GERI and the patient found to have necrosis at the base of the appendix and now the cecum was mobilized and a partial cecectomy was done to prevent the leak and the part of the cecum was also sent off the table for the pathology. There was proper hemostasis in each and every part of the procedure. The suction irrigation of the pelvic area, periappendicular area and the perihepatic area was done and a 19-Greenlandic Mihir drain was placed and the drain was secured to the skin. All the ports were taken out under vision, pneumo was deflated. There was proper hemostasis in each and every part of the procedure. The umbilical port site as well as left lower quadrant port site was closed in 2 layers, the fascia with 0 Vicryl, skin with 4-0 Monocryl, and dry, sterile dressing was applied. The patient tolerated the procedure well. Count of instruments and gauze was correct. There was no apparent complication. The patient was extubated in the OR, sent to the postanesthesia care unit in stable condition/ Dylon Banda MD MTDGinette
== END 2018-05-11 20:31 | disposition home or self-care (01) | DRG 853 ==
LOC: C.ER 06:38 → C.5S 11:54
PROVIDERS: ADMIT Surgery Surgical Critical Care; ATTEND Surgery Surgical Critical Care
PROC: 0DNW4ZZ Release Peritoneum, Percutaneous Endoscopic Approach (ICD-10-PCS; 2018-05-09)
PROC: 0DBH4ZZ Excision of Cecum, Percutaneous Endoscopic Approach (ICD-10-PCS; 2018-05-09)
PROC: 0D9W40Z Drainage of Peritoneum with Drainage Device, Percutaneous Endoscopic Approach (ICD-10-PCS; 2018-05-09)
PROC: 0DTJ4ZZ Resection of Appendix, Percutaneous Endoscopic Approach (ICD-10-PCS; principal; 2018-05-09 18:00)
DX: A41.9 Sepsis, unspecified organism (principal); K35.3 Acute appendicitis with localized peritonitis; K66.0 Peritoneal adhesions (postprocedural) (postinfection); K38.1 Appendicular concretions; R33.9 Retention of urine, unspecified; F17.210 Nicotine dependence, cigarettes, uncomplicated